=== PATIENT | female | born 1995 | race Two or more races ===

== ENCOUNTER 2024-09-23 07:08 | Inpatient (IN) | payer BC, OTHER ==
[~2024-09-23] VITALS: Ht 160 cm; Wt 95.6 kg
--- NOTE | 2024-09-23 07:23 | ED.PDOC ---
GI ASSESSMENT HPI Comments 29Y F presents to ED for chief complaint epigastric abd pain x5hrs with n/v x2hrs. Pt states abd pain radiates to rt flank area. Pt is unsure when LMP was and is currently on NuvaRing for control. Pt states her mother has h/o cholecystectomy. Pt denies alcohol, tobacco, and illicit drug use. 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 Family History Family History (Other): Gallstones Social History Smoker: Non-Smoker Alcohol: Denies ETOH Use Drugs: Denies Drug Use Lives In: Home Constitutional: denies: chills, diaphoresis, fatigue, fever, malaise, sweats, weakness, others EENTM: denies: blurred vision, double vision, ear bleeding, ear discharge, ear drainage, ear pain, ear ringing, eye pain, eye redness, hearing loss, mouth pain, mouth swelling, nasal discharge, nose bleeding, nose congestion, nose pain, photophobia, tearing, throat pain, throat swelling, voice changes, others Respiratory: denies: cough, hemoptysis, orthopnea, SOB at rest, shortness of breath, SOB with excertion, stridor, wheezing, others Cardiovascular: denies: chest pain, dizzy spells, diaphoresis, Dyspnea on exertion, edema, irregular heart beat, left arm pain, lightheadedness, palpitations, PND, syncope, others Gastrointestinal: reports: abdominal pain, nausea, vomiting; denies: abdomen distended, blood streaked bowels, constipated, diarrhea, dysphagia, difficulty swallowing, hematemesis, melena, poor appetite, poor fluid intake, rectal bleeding, rectal pain, others Genitourinary: reports: flank pain; denies: abnormal vagina bleeding, burning, dyspareunia, dysuria, frequency, hematuria, incontinence, pain, , vagina discharge, urgency, others Neurological: denies: dizziness, fainting, headache, left sided numbness, left sided weakness, numbness, paresthesia, pre-existing deficit, right sided numbness, right sided weakness, seizure, speech problems, tingling, tremors, weakness, others Musculoskeletal: denies: back pain, gout, joint pain, joint swelling, muscle pain, muscle stiffness, neck pain, others Integumetry: denies: bruises, change in color, change in hair/nails, dryness, laceration, lesions, lumps, rash, wounds, others Allergic/Immunocompromised: denies: Difficulty Healing, Frequent Infections, Hives, Itching, others Hematologic/Lymphatic: denies: anemia, blood clots, easy bleeding, easy bruising, swollen glands, others Endocrine: denies: excessive hunger, excessive sweating, excessive thirst, excessive urination, flushing, intolerance to cold, intolerance to heat, unexplained weight gain, unexplained weight loss, others Psychiatric: denies: anxiety, bipolar disorder, depression, hopeless, panic disorder, schizophrenia, sleepless, suicidal, others All Other Systems: Reviewed and Negative Physical Exam General Appearance: No Apparent Distress, Normal HEENT: Normal ENT Inspection, Pharynx Normal, TMs Normal Neck: Full Range of Motion, Non-Tender, Normal, Normal Inspection Respiratory: Chest Non-Tender, Lungs Clear, No Accessory Muscle Use, No Respiratory Distress, Normal Breath Sounds Cardiovascular: No Edema, No JVD, No Murmur, No Gallop, Normal Peripheral Pulses, Regular Rate/Rhythm Breast Exam: Deferred Gastrointestinal: Epigastric, No Pulsatile Mass, Normal Bowel Sounds, RUQ, Tenderness Genitalia: Deferred Pelvic: Deferred Rectal: Deferred Extremities: No calf tenderness, Normal capillary refill, Normal inspection, Normal range of motion, Non-tender, No pedal edema Musculoskeletal : Apperance: Normal Neurologic: Alert, wood piler II-XII nml as Tested, No Motor Deficits, Normal Affect, Normal Mood, No Sensory Deficits Cerebellar Function: Normal Reflexes: Normal Skin: Dry, Normal Color, Warm Lymphatic: No Adenopathy Was a procedure done? Was a procedure done?: No GI differential Dx Differential Diagnosis: Complete , Incomplete , Inevitable , Missed , Threatened , Abruptio placentae, Bowel Obstruction, Cholangitis, Cholecystitis, Constipation, Diverticular disease, Ectopic , Gastritis/PUD, Gastroenteritis, Hernia, Hepatitis, Inflammatory BD, Ischemic Bowel, Pancreatitis, UTI, Urolithiasis, Dehydration, Diabetes/ DKA, Electrolyte Imbalance, Food Poisoning, , Bacterial, Para sitic, Viral, Impaction, Malnutrition X-Ray, Labs, Meds, VS Vital Signs Date Time Temp Pulse Resp B/P (MAP) Pulse Ox O2 Delivery O2 Flow Rate FiO2 09/23/24 10:07 98.0 68 12 110/68 (82) 98 98.0 09/23/24 08:47 60 15 105/51 09/23/24 08:17 65 19 100/60 09/23/24 07:48 100 Room Air* 0 21 09/23/24 07:46 98.1 60 19 100/60 (73) 100 98.1 09/23/24 07:11 97.5 80 16 117/65 (82) 99 Lab Test 09/23/24 07:36 Range/Units White Blood Count 9.3 4.4-10.8 10^3/uL Red Blood Count 5.06 4.0-5.20 10^6/uL Hemoglobin 15.0 12.2-16.2 g/dL Hematocrit 44.7 36.0-46.0 % Mean Corpuscular Volume 88.2 80.0-100.0 fL Mean Corpuscular Hemoglobin 29.7 28.0-32.0 pg Mean Corpuscular Hemoglobin Concent 33.7 32.0-36.0 g/dL Red Cell Distribution Width 13.0 11.8-14.3 % Platelet Count 253 140-450 10^3/uL Mean Platelet Volume 8.4 6.9-10.8 fL Neutrophils (%) (Auto) 83.4 H 37.0-80.0 % Lymphocytes (%) (Auto) 11.9 10.0-50.0 % Monocytes (%) (Auto) 4.2 0.0-12.0 % Eosinophils (%) (Auto) 0.3 0.0-7.0 % Basophils (%) (Auto) 0.2 0.0-2.0 % Neutrophils # (Auto) 7.7 1.6-8.6 10 ^3/uL Lymphocytes # (Auto) 1.1 0.4-5.4 10 ^3/uL Monocytes # (Auto) 0.4 0-1.3 10 ^3/uL Eosinophils # (Auto) 0 0-0.8 10 ^3/uL Basophils # (Auto) 0 0-0.2 10 ^3/uL Nucleated Red Blood Cells 0.1 % Sodium Level 139 136-145 mmol/L Potassium Level 3.3 L 3.5-5.1 mmol/L Chloride Level 108 H 98-107 mmol/L Carbon Dioxide Level 19 L 20-31 mmol/L Anion Gap 12 5-15 Blood Urea Nitrogen 9 9-23 mg/dL Creatinine 0.66 0.550-1.02 mg/dL Glomerular Filtration Rate Calc 121 >90 mL/min BUN/Creatinine Ratio 13.6 10.0-20.0 Serum Glucose 134 H 74-106 mg/dL Calcium Level 9.6 8.7-10.4 mg/dL Total Bilirubin 0.4 0.2-1.0 mg/dL Aspartate Amino Transferase (AST) 14 13-40 U/L Alanine Aminotransferase (ALT) 11 7-40 U/L Alkaline Phosphatase 74 46-116 U/L Total Protein 7.7 5.7-8.2 g/dL Albumin 4.3 3.2-4.8 g/dL Lipase Pending Beta HCG, Quantitative < 1.5 L 1.5-4.2 mIU/mL Current Medications Medications (Trade) Dose Ordered Sig/Raymundo Route Start Time Stop Time Status Last Admin Acetaminophen/ Hydrocodone Bitart ([place] 5/325MG Tab) 1 tab ONCE ONCE PO 09/23/24 07:30 09/23/24 07:31 DC 09/23/24 07:54 Ondansetron HCl (Zofran) 4 mg ONCE ONCE IM 09/23/24 07:30 09/23/24 07:31 DC 09/23/24 07:53 Sodium Chloride 1,000 ml @ 1,000 mls/hr Q1H ONCE IV 09/23/24 08:15 09/23/24 09:14 DC 09/23/24 08:18 Morphine Sulfate 2 mg ONCE ONCE IV 09/23/24 08:15 09/23/24 08:16 DC 09/23/24 08:17 Time of 1ST Reevaluation: 07:45 Reevaluation 1ST: Unchanged Time of 2ND Reevaluation: 10:17 Reevaluation 2ND: Unchanged Patient Education/Counseling: Diagnosis, Treatment, Prognosis, Need For Follow Up Family Education/Counseling: Diagnosis, Treatment, Prognosis, Need For Follow Up, No Family Present Additional Information although pt does not have cholecystitis, or biliary obstruction, her pain remains uncontrolled. she also informs me that she has no PCP and cannot follow up . i will order another dose of pain medication, with fentanyl. if she remains in pain, she will be admitted for intractable biliary colic Departure 1 Departure Time of Disposition: 10:19 Impression: Primary Impression: Cholelithiasis Qualified Codes: K80.20 - Calculus of gallbladder without cholecystitis without obstruction Additional Impression: Intractable abdominal pain Disposition: ADMITTED INPATIENT Admit to: Med Surg Condition: Stable Discharged With: Self, Relative Critical Care Note Critical Care Time?: No Stability Stability form required: No I personally scribed for SHELIA GALLEGOS MD ([email or web address]) on 09/23/24 at 07:23. Electronically submitted by Mallory Henry ([email or web address]). SHELIA GALLEGOS MD Sep 23, 2024 07:23
[2024-09-23 07:48] VITALS: O2SAT 100
[2024-09-23] MEDS: ONDANSETRON HCL 4 MG/2 ML VIAL IM ONE (07:53)
[2024-09-23] MEDS: HYDROcodone-ACET 5/325MG TAB PO ONE (07:54)
[2024-09-23 07:58] LABS: Basophils # (auto) 0 10 ^3/uL (0-0.2); Basophils % (auto) 0.2 % (0.0-2.0); Eosinophils # (auto) 0 10 ^3/uL (0-0.8); Eosinophils % (auto) 0.3 % (0.0-7.0); Hematocrit 44.7 % (36.0-46.0); Lymphocytes # (auto) 1.1 10 ^3/uL (0.4-5.4); Lymphocytes % (auto) 11.9 % (10.0-50.0); Mean Corpuscular Hemoglobin 29.7 pg (28.0-32.0); Mean Corpuscular Hgb Conc. 33.7 g/dL (32.0-36.0); Mean Corpuscular Volume 88.2 fL (80.0-100.0); Monocytes # (auto) 0.4 10 ^3/uL (0-1.3); Monocytes % (auto) 4.2 % (0.0-12.0); Neutrophils # (auto) 7.7 10 ^3/uL (1.6-8.6); Neutrophils % (auto) 83.4 % (37.0-80.0); Nucleated Red Blood Cells % 0.1 %; Platelet Count (auto) 253 10^3/uL (140-450); Red Blood Cells 5.06 10^6/uL (4.0-5.20); White Blood Cell 9.3 10^3/uL (4.4-10.8)
[2024-09-23] MEDS: MORPHINE SULFATE INJ 2 MG/ml SYRG IV ONE (08:17)
[2024-09-23] MEDS: ONDANSETRON HCL 4 MG/2 ML VIAL IV ONE (08:18)
[2024-09-23] MEDS: SODIUM CHLORIDE 0.9% 1,000 ML IV ONE (08:18)
[2024-09-23 08:25] LABS: Alanine Aminotransferase 11 U/L (7-40); Albumin 4.3 g/dL (3.2-4.8); Alkaline Phosphatase 74 U/L (46-116); Anion Gap 12 (5-15); Aspartate Aminotransferase 14 U/L (13-40); BUN/Creatinine Ratio 13.6 (10.0-20.0); Blood Urea Nitrogen 9 mg/dL (9-23); Calcium 9.6 mg/dL (8.7-10.4); Carbon Dioxide 19 mmol/L (20-31); Chloride 108 mmol/L (98-107); Glucose 134 mg/dL (74-106); Potassium 3.3 mmol/L (3.5-5.1); Sodium 139 mmol/L (136-145)
[2024-09-23 08:26] LABS: Bilirubin, Total 0.4 mg/dL (0.2-1.0); Total Protein 7.7 g/dL (5.7-8.2)
--- NOTE | 2024-09-23 09:47 | DVH ---
INDICATION: Right upper quadrant pain. TECHNIQUE: Multiple real-time sonographic images of the abdomen were obtained. COMPARISON: None FINDINGS: The liver is increased in echogenicity. The liver measures 14.6 cm. No intrahepatic biliar y ductal dilatation is noted. The gallbladder wall measures 0.2 cm and is unremarkable. Multiple gallstones. The common duct is not visualized. No pericholecystic fluid is noted. Negative sonographic stokes's sign. The right kidney measures 9.7 cm. No hydronephrosis. The pancreas is not well visualized due to obscuration from bowel gas. The visualized portions of the IVC and aorta are grossly unremarkable. IMPRESSION: 1. Gallstones. No evidence of acute cholecystitis. 2. Hepatic steatosis.
[2024-09-23 10:22] LABS: Lipase 27 U/L (12-53)
[2024-09-23 10:43] LABS: Urine Bacteria None Seen /hpf (None Seen)
[2024-09-23] MEDS: fentaNYL CITRATE 100 MCG/2 ML VL IV ONE (10:49)
[2024-09-23 10:55] LABS: Urine Blood TRACE /uL (Negative); Urine Clarity Clear (Clear); Urine Color Light-Yellow (Yellow); Urine Mucus FEW (None Seen); Urine Protein, UAD Negative (Negative); Urine Specific Gravity 1.026 (1.001-1.035); Urine Urobilinogen Normal (Negative); Urine WBC 3 /hpf (0 - 5); Urine pH 6.5 (5.0-9.0)
[2024-09-23] MEDS: SODIUM CHLORIDE 0.9% 1,000 ML IV SCH (13:30)
--- NOTE | 2024-09-23 13:34 | DVHHP2 ---
History of Present Illness Reason for Visit: Abdominal pain History of Present Illness This 29-year-old female with no significant past medical history presents in the ED with a chief complaint of abdominal pain. Patient reports abdominal pain on right upper quadrant and epigastric area associated with nausea and vomiting started this morning. She denies fever, chills, hematemesis, constipation, diarrhea, or melena. Past Medical History Denies Past Surgical History Denies Family History Mom with a history of cholecystectomy Past Social History The patient lives at home, denies smoking, alcohol or illicit drugs abuse. Review of Systems Constitutional: Yes: Malaise; No: Fever, Chills, Sweats, Weakness, Other Eyes: No: Pain, Vision change, Conjunctivae inflammation, Eyelid inflammation, Other, Redness ENT: No: Ear pain, Ear discharge, Nose pain, Nose discharge, Nose congestion, Mouth pain, Mouth swelling, Throat pain, Throat swelling, Other Respiratory: No: Cough, Dry, Shortness of breath, SOB with excertion, Wheezing, Hemoptysis, Pleuritic Pain, Sputum, Wheezing, Other Cardiovascular: No: Chest Pain, Palpitations, Orthopnea, Paroxysmal Noc. Dyspnea, Edema, Lt Headedness, Other Gastrointestinal: Nausea, Vomiting, Abdominal Pain; No: Diarrhea, Constipation, Melena, Hematochezia, Other Genitourinary: No Dysuria, No Frequency, No Incontinence, No Hematuria, No Retention, No Other Musculoskeletal: No: other, neck pain, shoulder pain, arm pain, back pain, hand pain, leg pain, foot pain Skin: No: Rash, Lesions, Jaundice, Bruising, Other Neurological: No: Weakness, Numbness, Incoordination, Change in speech, Confusion, Seizures, Other Allergies: Coded Allergies: NO KNOWN ALLERGIES (Unverified , 09/23/24) Exam Vital Signs Vital Signs Date Time Temp Pulse Resp B/P (MAP) Pulse Ox O2 Delivery O2 Flow Rate FiO2 09/23/24 11:56 107/63 09/23/24 10:07 98.0 68 12 98 98.0 09/23/24 07:48 Room Air* 0 21 General Appearance: Alert, Oriented X3, Cooperative, mild distress HEENT: Atraumatic, PERRLA, EOMI Respiratory: Clear to auscultation, Normal air movement Cardiovascular: Regular rate, Normal S1 Abdominal: Normal bowel sounds, Soft, No tenderness Extremities: No clubbing, No cyanosis, No edema, Normal pulses Skin: No rashes, No breakdown, No significant lesion Neuro: Normal gait, Normal speech, Strength at 5/5 X4 ext, Normal tone Psych/Mental Status: Mental status NL Labs/Xrays Labs Test 09/23/24 09:00 09/23/24 07:36 Range/Units Urine Color Light-yellow Yellow Urine Clarity Clear Clear Urine pH 6.5 5.0-9.0 Urine Specific [place] 1.026 1.001-1.035 Urine Protein Negative Negative Urine Ketones 3+ H Negative Urine Blood Trace H Negative /uL Urine Nitrite Negative Negative Urine Bilirubin Negative Negative Urine Urobilinogen Normal Negative mg/dL Urine Leukocyte Esterase 1+ Negative /uL Urine RBC 1 0 - 4 /hpf Urine WBC 3 0 - 5 /hpf Urine Squamous Epithelial Cells Few <5 /hpf Urine Bacteria None seen None Seen /hpf Urine Mucus Few None Seen Urine Glucose Normal Normal mg/dL White Blood Count 9.3 4.4-10.8 10^3/uL Red Blood Count 5.06 4.0-5.20 10^6/uL Hemoglobin 15.0 12.2-16.2 g/dL Hematocrit 44.7 36.0-46.0 % Mean Corpuscular Volume 88.2 80.0-100.0 fL Mean Corpuscular Hemoglobin 29.7 28.0-32.0 pg Mean Corpuscular Hemoglobin Concent 33.7 32.0-36.0 g/dL Red Cell Distribution Width 13.0 11.8-14.3 % Platelet Count 253 140-450 10^3/uL Mean Platelet Volume 8.4 6.9-10.8 fL Neutrophils (%) (Auto) 83.4 H 37.0-80.0 % Lymphocytes (%) (Auto) 11.9 10.0-50.0 % Monocytes (%) (Auto) 4.2 0.0-12.0 % Eosinophils (%) (Auto) 0.3 0.0-7.0 % Basophils (%) (Auto) 0.2 0.0-2.0 % Neutrophils # (Auto) 7.7 1.6-8.6 10 ^3/uL Lymphocytes # (Auto) 1.1 0.4-5.4 10 ^3/uL Monocytes # (Auto) 0.4 0-1.3 10 ^3/uL Eosinophils # (Auto) 0 0-0.8 10 ^3/uL Basophils # (Auto) 0 0-0.2 10 ^3/uL Nucleated Red Blood Cells 0.1 % Sodium Level 139 136-145 mmol/L Potassium Level 3.3 L 3.5-5.1 mmol/L Chloride Level 108 H 98-107 mmol/L Carbon Dioxide Level 19 L 20-31 mmol/L Anion Gap 12 5-15 Blood Urea Nitrogen 9 9-23 mg/dL Creatinine 0.66 0.550-1.02 mg/dL Glomerular Filtration Rate Calc 121 >90 mL/min BUN/Creatinine Ratio 13.6 10.0-20.0 Serum Glucose 134 H 74-106 mg/dL Calcium Level 9.6 8.7-10.4 mg/dL Total Bilirubin 0.4 0.2-1.0 mg/dL Aspartate Amino Transferase (AST) 14 13-40 U/L Alanine Aminotransferase (ALT) 11 7-40 U/L Alkaline Phosphatase 74 46-116 U/L Total Protein 7.7 5.7-8.2 g/dL Albumin 4.3 3.2-4.8 g/dL Lipase 27 12-53 U/L Beta HCG, Quantitative < 1.5 L 1.5-4.2 mIU/mL PROCEDURE(s): GBUS - GALLBLADDER REASON: ruq pain ORDER NUMBER(s): [id number], ACCESSION NUMBER(s): [id number] INDICATION: Right upper quadrant pain. TECHNIQUE: Multiple real-time sonographic images of the abdomen were obtained. COMPARISON: None FINDINGS: The liver is increased in echogenicity. The liver measures 14.6 cm. No intrahepatic biliary ductal dilatation is noted. The gallbladder wall measures 0.2 cm and is unremarkable. Multiple gallstones. The common duct is not visualized. No pericholecystic fluid is noted. Negative sonographic stokes's sign. The right kidney measures 9.7 cm. No hydronephrosis. The pancreas is not well visualized due to obscuration from bowel gas. The visualized portions of the IVC and aorta are grossly unremarkable. IMPRESSION: 1. Gallstones. No evidence of acute cholecystitis. 2. Hepatic steatosis. Assessment/Plan Assessment/Plan # Acute abdominal pain likely due to gallstones # nausea and vomiting Admit to medical unit Pain control with Toradol Clear liquid diet advance as tolerated IV fluid Anti emetics Consider surgical consult if not controlled with pain in diet # obesity Lifestyle modification with diet, regular exercise and weight loss Medical plan discussed with patient Plan discussed with: Patient Date of Service: Sep 23, 2024 Billing Provider: FLOWER COLÓN Common Visit Codes: [id number] INP/OBS CARE (HIGH) FLOWER COLÓN Sep 23, 2024 13:34
[2024-09-23] MEDS: ONDANSETRON HCL 4 MG/2 ML VIAL IV PRN (16:34)
[2024-09-23] MEDS: KETOROLAC TROMETH 30 MG/ML 1ML VIAL IV PRN (18:24)
[2024-09-23 20:46] VITALS: BP 114/68; PULSE 83; RESP 18; TEMP 98.2; O2SAT 99
[2024-09-23 21:00] VITALS: BP 111/68; PULSE 92; RESP 20; TEMP 98.2; O2SAT 99
[2024-09-24] VITALS (7 sets, daily range): BP systolic 114–126; BP diastolic 67–74; PULSE 65–96; RESP 17–20; TEMP 97.6–98.8; O2SAT 94–100
[2024-09-24 06:26] LABS: Basophils # (auto) 0.1 10 ^3/uL (0-0.2); Basophils % (auto) 0.9 % (0.0-2.0); Eosinophils # (auto) 0.1 10 ^3/uL (0-0.8); Eosinophils % (auto) 1.1 % (0.0-7.0); Hematocrit 38.6 % (36.0-46.0); Hemoglobin 13.2 g/dL (12.2-16.2); Lymphocytes # (auto) 1.8 10 ^3/uL (0.4-5.4); Lymphocytes % (auto) 24.4 % (10.0-50.0); Mean Corpuscular Hemoglobin 30.2 pg (28.0-32.0); Mean Corpuscular Hgb Conc. 34.3 g/dL (32.0-36.0); Monocytes # (auto) 0.5 10 ^3/uL (0-1.3); Monocytes % (auto) 7.1 % (0.0-12.0); Neutrophils # (auto) 4.9 10 ^3/uL (1.6-8.6); Neutrophils % (auto) 66.5 % (37.0-80.0); Platelet Count (auto) 223 10^3/uL (140-450); Red Blood Cells 4.39 10^6/uL (4.0-5.20); Red Cell Distribution Width 13.1 % (11.8-14.3); White Blood Cell 7.3 10^3/uL (4.4-10.8)
[2024-09-24 06:32] LABS: Anion Gap 6 (5-15); Carbon Dioxide 24 mmol/L (20-31); Chloride 111 mmol/L (98-107); Potassium 3.7 mmol/L (3.5-5.1); Sodium 141 mmol/L (136-145)
[2024-09-24 06:34] LABS: Calcium 8.6 mg/dL (8.7-10.4)
[2024-09-24 06:38] LABS: Blood Urea Nitrogen 6 mg/dL (9-23); Glucose 92 mg/dL (74-106)
--- NOTE | 2024-09-24 11:53 | DVHPN2 ---
Progress Note Date Seen: Sep 24, 2024 Medical Necessity Reason Pt with a Central, PICC or Fol: No Subjective Patient reports: No new complaints Review of Systems: HEENT:Normal, CVS:Normal, RESPIRATORY:Normal, GI:Normal, :Normal, MSK:Normal, NEURO:Normal Objective vital signs Vital Sign Date Time Temp Pulse Resp B/P (MAP) Pulse Ox O2 Delivery O2 Flow Rate FiO2 09/24/24 08:00 97.7 74 18 120/72 (88) 99 97.7 09/23/24 20:46 Room Air* 0 21 Total Intake and Output 09/23/24 09/23/24 09/24/24 15:00 23:00 07:00 Intake Total 500 ml 240 ml Output Total 0 ml Balance 500 ml 240 ml medications Current Medications Medications Dose Ordered Sig/Raymundo Route Start Time Stop Time Status Last Admin Dose Admin Sodium Chloride 1,000 ml @ 100 mls/hr Q10H IV 09/23/24 13:30 09/24/24 09:30 100 MLS/HR Ondansetron HCl 4 mg Q4HP PRN IV 09/23/24 13:30 09/23/24 16:34 4 MG Ketorolac Tromethamine 30 mg Q6HPRN PRN IV 09/23/24 13:30 09/28/24 13:29 09/23/24 18:24 30 MG Examination: GENERAL:Normal, HEENT:Normal, NECK:Normal, LUNGS:Normal, CVS:Normal, ABDOMEN:Normal, MSK:Normal, SKIN:Normal, NEURO:Normal, :Normal laboratory and microbiology Laboratory Tests 09/24/24 05:51 Test 09/24/24 05:51 Range/Units Serum Glucose 92 74-106 mg/dL Problem List/Assessment/Plan Problem List/Assessment/Plan #1 abd pain with gallstones: ivf , surg eval #2 obesity Plan discussed with: Patient, Spouse Date of Service: Sep 24, 2024 Billing Provider: ANATOLY ROUSE MD Common Visit Codes: [id number] INP/OBS CARE(HIGH) ANATOLY ROUSE MD Sep 24, 2024 11:53
[2024-09-24] MEDS ORDERED: ACETAMINOPHEN 500 MG TAB PO PRN (12:00)
[2024-09-24] MEDS ORDERED: HYDROcodone-ACET 5/325MG TAB PO PRN (12:00)
[2024-09-24] MEDS ORDERED: MORPHINE SULFATE INJ 2 MG/ml SYRG IV PRN (12:00)
--- NOTE | 2024-09-24 13:04 | DVHINCON2 ---
Date of service: Sep 24, 2024 Family History: Diabetes mellitus G8 FATHER Hypercholesterolemia G8 MOTHER Allergies: Coded Allergies: NO KNOWN ALLERGIES (Unverified , 09/23/24) Current Medications Current Medications Medications (Trade) Dose Ordered Sig/Raymundo Route PRN Reason Start Time Stop Time Status Last Admin Sodium Chloride 1,000 ml @ 100 mls/hr Q10H IV 09/23/24 13:30 09/24/24 09:30 Ondansetron HCl (Zofran) 4 mg Q4HP PRN IV NAUSEA / VOMITING 09/23/24 13:30 09/23/24 16:34 Ketorolac Tromethamine (Toradol Injection) 30 mg Q6HPRN PRN IV SEVERE PAIN (7-10 PAIN SCALE) 09/23/24 13:30 09/28/24 13:29 09/23/24 18:24 Morphine Sulfate 2 mg Q6HPRN PRN IV SEVERE PAIN (7-10 PAIN SCALE) 09/24/24 12:00 Acetaminophen/ Hydrocodone Bitart ([place] 5/325MG Tab) 1 tab Q6HPRN PRN PO MODERATE PAIN (4-6 PAIN SCALE) 09/24/24 12:00 Acetaminophen (Tylenol Tablet) 500 mg Q6HP PRN PO MILD PAIN (1-3 PAIN SCALE) 09/24/24 12:00 Pantoprazole Sodium (Protonix) 40 mg DAILY IV 09/25/24 10:00 Vital Signs Vital Signs Date Time Temp Pulse Resp B/P (MAP) Pulse Ox O2 Delivery O2 Flow Rate FiO2 09/24/24 08:00 97.7 74 18 120/72 (88) 99 97.7 09/23/24 20:46 Room Air* 0 21 Labs/Diagnostic Data Labs Test 09/24/24 05:51 09/23/24 09:00 09/23/24 07:36 Range/Units White Blood Count 7.3 4.4-10.8 10^3/uL Red Blood Count 4.39 4.0-5.20 10^6/uL Hemoglobin 13.2 12.2-16.2 g/dL Hematocrit 38.6 # 36.0-46.0 % Mean Corpuscular Volume 88.0 80.0-100.0 fL Mean Corpuscular Hemoglobin 30.2 28.0-32.0 pg Mean Corpuscular Hemoglobin Concent 34.3 32.0-36.0 g/dL Red Cell Distribution Width 13.1 11.8-14.3 % Platelet Count 223 140-450 10^3/uL Mean Platelet Volume 8.2 6.9-10.8 fL Neutrophils (%) (Auto) 66.5 37.0-80.0 % Lymphocytes (%) (Auto) 24.4 10.0-50.0 % Monocytes (%) (Auto) 7.1 0.0-12.0 % Eosinophils (%) (Auto) 1.1 0.0-7.0 % Basophils (%) (Auto) 0.9 0.0-2.0 % Neutrophils # (Auto) 4.9 1.6-8.6 10 ^3/uL Lymphocytes # (Auto) 1.8 0.4-5.4 10 ^3/uL Monocytes # (Auto) 0.5 0-1.3 10 ^3/uL Eosinophils # (Auto) 0.1 0-0.8 10 ^3/uL Basophils # (Auto) 0.1 0-0.2 10 ^3/uL Nucleated Red Blood Cells 0.0 % Sodium Level 141 136-145 mmol/L Potassium Level 3.7 3.5-5.1 mmol/L Chloride Level 111 H 98-107 mmol/L Carbon Dioxide Level 24 20-31 mmol/L Anion Gap 6 5-15 Blood Urea Nitrogen 6 L 9-23 mg/dL Creatinine 0.60 0.550-1.02 mg/dL Glomerular Filtration Rate Calc 124 >90 mL/min BUN/Creatinine Ratio 10.0 10.0-20.0 Serum Glucose 92 74-106 mg/dL Calcium Level 8.6 L 8.7-10.4 mg/dL Urine Color Light-yellow Yellow Urine Clarity Clear Clear Urine pH 6.5 5.0-9.0 Urine Specific [place] 1.026 1.001-1.035 Urine Protein Negative Negative Urine Ketones 3+ H Negative Urine Blood Trace H Negative /uL Urine Nitrite Negative Negative Urine Bilirubin Negative Negative Urine Urobilinogen Normal Negative mg/dL Urine Leukocyte Esterase 1+ Negative /uL Urine RBC 1 0 - 4 /hpf Urine WBC 3 0 - 5 /hpf Urine Squamous Epithelial Cells Few <5 /hpf Urine Bacteria None seen None Seen /hpf Urine Mucus Few None Seen Urine Glucose Normal Normal mg/dL Total Bilirubin 0.4 0.2-1.0 mg/dL Aspartate Amino Transferase (AST) 14 13-40 U/L Alanine Aminotransferase (ALT) 11 7-40 U/L Alkaline Phosphatase 74 46-116 U/L Total Protein 7.7 5.7-8.2 g/dL Albumin 4.3 3.2-4.8 g/dL Lipase 27 12-53 U/L Beta HCG, Quantitative < 1.5 L 1.5-4.2 mIU/mL Assessment WILL PROCEED WITH CHOLECYSTECTOMY PER dR ROUSE'S REQUEST ON TUESDAY, WILL SEE PATIENT TOMORROW (not in her room today). Plan discussed with: JERI Jimenez MD Sep 24, 2024 13:04
[2024-09-24] MEDS: PANTOPRAZOLE 40 MG/10 ML VIAL INJ IV ONE (13:31)
[2024-09-25] VITALS (7 sets, daily range): BP systolic 94–119; BP diastolic 53–77; PULSE 69–99; RESP 16–18; TEMP 98–98.6; O2SAT 95–99
[2024-09-25 06:29] LABS: Basophils # (auto) 0 10 ^3/uL (0-0.2); Basophils % (auto) 0.4 % (0.0-2.0); Eosinophils # (auto) 0.1 10 ^3/uL (0-0.8); Eosinophils % (auto) 2.3 % (0.0-7.0); Hematocrit 36.7 % (36.0-46.0); Hemoglobin 12.5 g/dL (12.2-16.2); Lymphocytes # (auto) 1.9 10 ^3/uL (0.4-5.4); Lymphocytes % (auto) 33.3 % (10.0-50.0); Mean Corpuscular Hemoglobin 29.7 pg (28.0-32.0); Mean Corpuscular Volume 87.3 fL (80.0-100.0); Monocytes # (auto) 0.5 10 ^3/uL (0-1.3); Monocytes % (auto) 9.3 % (0.0-12.0); Neutrophils # (auto) 3.1 10 ^3/uL (1.6-8.6); Neutrophils % (auto) 54.7 % (37.0-80.0); Nucleated Red Blood Cells % 0.1 %; Platelet Count (auto) 203 10^3/uL (140-450); Red Cell Distribution Width 13.2 % (11.8-14.3); White Blood Cell 5.6 10^3/uL (4.4-10.8)
[2024-09-25 06:39] LABS: INR 1.01 (0.9-1.15); Partial Thromboplastin Time 29.9 SEC (24.5-34.5); Prothrombin Time 10.7 sec (9.3-11.8)
[2024-09-25 06:47] LABS: Albumin 3.3 g/dL (3.2-4.8); Alkaline Phosphatase 49 U/L (46-116); Anion Gap 4 (5-15); Aspartate Aminotransferase 9 U/L (13-40); Calcium 8.2 mg/dL (8.7-10.4); Carbon Dioxide 25 mmol/L (20-31); Chloride 111 mmol/L (98-107); Glucose 88 mg/dL (74-106); Potassium 3.7 mmol/L (3.5-5.1); Sodium 140 mmol/L (136-145)
[2024-09-25 06:48] LABS: Bilirubin, Total 0.6 mg/dL (0.2-1.0); Total Protein 5.5 g/dL (5.7-8.2)
[2024-09-25 06:52] LABS: Alanine Aminotransferase 9 U/L (7-40); BUN/Creatinine Ratio 9.1 (10.0-20.0); Blood Urea Nitrogen < 5 mg/dL (9-23)
[2024-09-25] MEDS: PANTOPRAZOLE 40 MG/10 ML VIAL INJ IV SCH (10:17)
--- NOTE | 2024-09-25 15:20 | DVHPN2 ---
Progress Note Date Seen: Sep 25, 2024 Medical Necessity Reason Pt with a Central, PICC or Fol: No Subjective Patient reports: No new complaints Review of Systems: HEENT:Normal, CVS:Normal, RESPIRATORY:Normal, GI:Normal, :Normal, MSK:Normal, NEURO:Normal Objective vital signs Vital Sign Date Time Temp Pulse Resp B/P (MAP) Pulse Ox O2 Delivery O2 Flow Rate FiO2 09/25/24 12:39 98.0 69 17 119/74 (89) 98 98.0 09/25/24 08:00 Room Air* 0 21 Total Intake and Output 09/24/24 09/24/24 09/25/24 14:59 22:59 06:59 Intake Total 1000 ml 200 ml Output Total 5 ml Balance 995 ml 200 ml medications Current Medications Medications Dose Ordered Sig/Raymundo Route Start Time Stop Time Status Last Admin Dose Admin Sodium Chloride 1,000 ml @ 100 mls/hr Q10H IV 09/23/24 13:30 09/24/24 19:30 100 MLS/HR Ondansetron HCl 4 mg Q4HP PRN IV 09/23/24 13:30 09/23/24 16:34 4 MG Ketorolac Tromethamine 30 mg Q6HPRN PRN IV 09/23/24 13:30 09/28/24 13:29 09/23/24 18:24 30 MG Morphine Sulfate 2 mg Q6HPRN PRN IV 09/24/24 12:00 Acetaminophen/ Hydrocodone Bitart 1 tab Q6HPRN PRN PO 09/24/24 12:00 Acetaminophen 500 mg Q6HP PRN PO 09/24/24 12:00 Pantoprazole Sodium 40 mg DAILY IV 09/25/24 10:00 09/25/24 10:17 40 MG Examination: GENERAL:Normal, HEENT:Normal, NECK:Normal, LUNGS:Normal, CVS:Normal, ABDOMEN:Normal, MSK:Normal, SKIN:Normal, NEURO:Normal, :Normal laboratory and microbiology Laboratory Tests 09/25/24 05:50 Test 09/25/24 05:50 Range/Units Serum Glucose 88 74-106 mg/dL Problem List/Assessment/Plan Problem List/Assessment/Plan #1 abd pain with gallstones ? acute bunny: ivf , surg in am #2 obesity Plan discussed with: Patient Date of Service: Sep 25, 2024 Billing Provider: ANATOLY ROUSE MD Common Visit Codes: [id number] INP/OBS CARE(HIGH) ANATOLY ROUSE MD Sep 25, 2024 15:20
[2024-09-26] VITALS (10 sets, daily range): BP systolic 94–112; BP diastolic 54–70; PULSE 79–113; RESP 16–19; TEMP 98–98.8; O2SAT 96–99
[2024-09-26 06:47] LABS: Basophils # (auto) 0 10 ^3/uL (0-0.2); Basophils % (auto) 0.4 % (0.0-2.0); Eosinophils # (auto) 0.2 10 ^3/uL (0-0.8); Eosinophils % (auto) 3.4 % (0.0-7.0); Hematocrit 37.5 % (36.0-46.0); Hemoglobin 12.7 g/dL (12.2-16.2); Lymphocytes # (auto) 1.9 10 ^3/uL (0.4-5.4); Lymphocytes % (auto) 35.5 % (10.0-50.0); Mean Corpuscular Hemoglobin 29.7 pg (28.0-32.0); Mean Corpuscular Hgb Conc. 33.8 g/dL (32.0-36.0); Mean Corpuscular Volume 87.8 fL (80.0-100.0); Monocytes # (auto) 0.4 10 ^3/uL (0-1.3); Monocytes % (auto) 7.1 % (0.0-12.0); Neutrophils # (auto) 2.8 10 ^3/uL (1.6-8.6); Neutrophils % (auto) 53.6 % (37.0-80.0); Platelet Count (auto) 216 10^3/uL (140-450); Red Blood Cells 4.27 10^6/uL (4.0-5.20); Red Cell Distribution Width 12.8 % (11.8-14.3); White Blood Cell 5.3 10^3/uL (4.4-10.8)
[2024-09-26 06:55] LABS: Alanine Aminotransferase 11 U/L (7-40); Albumin 3.5 g/dL (3.2-4.8); Alkaline Phosphatase 51 U/L (46-116); Anion Gap 4 (5-15); Aspartate Aminotransferase 11 U/L (13-40); Calcium 8.6 mg/dL (8.7-10.4); Carbon Dioxide 27 mmol/L (20-31); Chloride 109 mmol/L (98-107); Glucose 81 mg/dL (74-106); Potassium 3.8 mmol/L (3.5-5.1); Sodium 140 mmol/L (136-145)
[2024-09-26 06:56] LABS: Bilirubin, Total 0.7 mg/dL (0.2-1.0); Total Protein 5.8 g/dL (5.7-8.2)
[2024-09-26 06:57] LABS: BUN/Creatinine Ratio 8.2 (10.0-20.0); Blood Urea Nitrogen < 5 mg/dL (9-23)
[2024-09-26] MEDS ORDERED: ePHEDrine SULFATE 50 MG/ML AMP IV PRN (11:30)
[2024-09-26] MEDS: ONDANSETRON HCL 4 MG/2 ML VIAL IV ONE (11:30)
[2024-09-26] MEDS ORDERED: HYDROmorphone HCL 2 MG/ML VL/or syr IV PRN ×2 (11:30→12:45)
[2024-09-26] MEDS: ceFAZolin 2 GM/D5W100ml 100 ML IV ONE (12:32)
[2024-09-26] MEDS ORDERED: LIDOCAINE 1% INJ PF 5ML AMP ONE (12:32)
[2024-09-26] MEDS ORDERED: MIDAZOLAM HCL 2MG/2ML 2ml VIAL (1mg/ml) ONE (12:32)
--- NOTE | 2024-09-26 12:44 | DVHPN2 ---
Progress Note Date Seen: Sep 26, 2024 Medical Necessity Reason Pt with a Central, PICC or Fol: No Subjective Patient reports: No new complaints Review of Systems: HEENT:Normal, CVS:Normal, RESPIRATORY:Normal, GI:Normal, :Normal, MSK:Normal, NEURO:Normal Objective vital signs Vital Sign Date Time Temp Pulse Resp B/P (MAP) Pulse Ox O2 Delivery O2 Flow Rate FiO2 09/26/24 09:27 98.2 97 17 112/70 (84) 99 98.2 09/25/24 20:00 Room Air* 0 21 Total Intake and Output 09/25/24 09/25/24 09/26/24 15:00 23:00 07:00 Intake Total 1500 ml 550 ml Balance 1500 ml 550 ml medications Current Medications Medications Dose Ordered Sig/Raymundo Route Start Time Stop Time Status Last Admin Dose Admin Sodium Chloride 1,000 ml @ 100 mls/hr Q10H IV 09/23/24 13:30 09/25/24 17:17 100 MLS/HR Ondansetron HCl 4 mg Q4HP PRN IV 09/23/24 13:30 09/23/24 16:34 4 MG Ketorolac Tromethamine 30 mg Q6HPRN PRN IV 09/23/24 13:30 09/28/24 13:29 09/23/24 18:24 30 MG Morphine Sulfate 2 mg Q6HPRN PRN IV 09/24/24 12:00 Acetaminophen/ Hydrocodone Bitart 1 tab Q6HPRN PRN PO 09/24/24 12:00 Acetaminophen 500 mg Q6HP PRN PO 09/24/24 12:00 Pantoprazole Sodium 40 mg DAILY IV 09/25/24 10:00 09/26/24 10:00 40 MG Examination: GENERAL:Normal, HEENT:Normal, NECK:Normal, LUNGS:Normal, CVS:Normal, ABDOMEN:Normal, MSK:Normal, SKIN:Normal, NEURO:Normal, :Normal laboratory and microbiology Laboratory Tests 09/26/24 05:49 Test 09/26/24 05:49 Range/Units Serum Glucose 81 74-106 mg/dL Problem List/Assessment/Plan Problem List/Assessment/Plan #1 abd pain with gallstones ? acute bunny: ivf , surg today #2 obesity Plan discussed with: Other (rn) Date of Service: Sep 26, 2024 Billing Provider: ANATOLY ROUSE MD Common Visit Codes: [id number] INP/OBS CARE(HIGH) ANATOLY ROUSE MD Sep 26, 2024 12:44
[2024-09-26] MEDS: D5W/SOD CHL 0.45%/KCL 20MEQ 1,000 ML IV SCH (12:45)
[2024-09-26] MEDS ORDERED: ONDANSETRON HCL 4 MG/2 ML VIAL IV PRN (12:45)
[2024-09-26] MEDS ORDERED: HYDROmorphone HCL 2 MG/ML VL/or syr ONE (12:54)
[2024-09-26] MEDS ORDERED: DexAMETHasone SOD PHOS 10MG/1ML VIAL INJ ONE (12:54)
[2024-09-26] MEDS: BUPIVACAINE 0.25% INJ 50ML VIAL ONE (13:07)
[2024-09-26] MEDS: LIDOCAINE 1% HCL (LOCAL ANESTH.) INJ 20ML MDV ONE (13:07)
--- NOTE | 2024-09-26 13:32 | DVHOP ---
DATE OF SURGERY: 09/26/2024 PREOPERATIVE DIAGNOSES: Cholelithiasis, cholecystitis. POSTOPERATIVE DIAGNOSES: Morbid obesity, cholelithiasis and cholecystitis. SURGEON: Kamran Suarez MD MICROSTRATEGY BI DEVELOPER: Mando Hernández. ANESTHESIA: General endotracheal. ANESTHESIOLOGIST: Dr. Solis. PROCEDURE: Laparoscopy, laparoscopic cholecystectomy. DESCRIPTION OF PROCEDURE: Under general endotracheal anesthesia with the patient's skin prepped and draped, a supraumbilical incision was made and Veress needle inserted by the hanging drop technique to establish pneumoperitoneum to 15 mmHg pressure by insufflation with carbon dioxide. With the abdomen fully distended, the needle was removed and replaced with a 10 mm port site through which a 0-degree viewing laparoscope was inserted under direct vision, an additional 5 mm port were established through the subxiphoid skin in the right anterior axillary line. Following which instrumentation was introduced and laparoscopy was performed. It was hampered by the patient's morbid obesity; however, no obvious unexpected pathology was encountered. The gallbladder was affected by acute and chronic cholecystitis. It was distended and inflamed and was placed on tension. The cystic duct and cystic artery were identified, circumferentially dissected, skeletonized and traced into the hepaticocystic triangle so as to minimize the potential for inadvertent injury to the common bile duct. The cystic duct and cystic artery were then divided between metallic clips close to the gallbladder and the gallbladder was resected from its liver bed by electrocautery and traction. The fully mobilized gallbladder was removed from the peritoneal cavity by placement in an extraction bag, which was then retrieved through the supraumbilical 10 mm port sites. The right upper quadrant was thoroughly irrigated, irrigant was aspirated. Hemostasis was meticulously accomplished, found to be complete. At the termination of the procedure, there was no evidence of bleeding from either the liver bed or from the port sites. Instrumentation was withdrawn. Pneumoperitoneum was evacuated. Fascial defect closed using 0 Vicryl. Wounds approximated using Monocryl sutures, Dermabond glue and Steri-Strips. The patient remained stable throughout the procedure and left the operating room following an accurate needle and sponge counts. The patient's was thoroughly informed in the waiting room. Kamran Suarez MD PF TID: [id number] RECEIPT: [id number]
[2024-09-26] MEDS ORDERED: ONDANSETRON HCL 4 MG/2 ML VIAL ONE (13:37)
[2024-09-26] MEDS: ACETAMINOPHEN/CODEINE#3 (300/30mg) TAB PO PRN (13:37)
[2024-09-26] MEDS ORDERED: PROPOFOL 10 MG/ML 20 ML IV ONE (13:49)
[2024-09-27 01:00] VITALS: BP 100/68; PULSE 77; RESP 17; TEMP 98.6; O2SAT 97
[2024-09-27 05:00] VITALS: BP 108/64; PULSE 89; RESP 18; TEMP 98.5; O2SAT 95
[2024-09-27 07:07] LABS: Basophils # (auto) 0 10 ^3/uL (0-0.2); Basophils % (auto) 0.1 % (0.0-2.0); Eosinophils # (auto) 0 10 ^3/uL (0-0.8); Eosinophils % (auto) 0.2 % (0.0-7.0); Hemoglobin 12.3 g/dL (12.2-16.2); Lymphocytes # (auto) 1.4 10 ^3/uL (0.4-5.4); Mean Corpuscular Hgb Conc. 34.3 g/dL (32.0-36.0); Mean Corpuscular Volume 87.6 fL (80.0-100.0); Monocytes # (auto) 0.5 10 ^3/uL (0-1.3); Monocytes % (auto) 7.7 % (0.0-12.0); Neutrophils # (auto) 4.8 10 ^3/uL (1.6-8.6); Nucleated Red Blood Cells % 0.1 %; Platelet Count (auto) 240 10^3/uL (140-450); Red Blood Cells 4.11 10^6/uL (4.0-5.20); Red Cell Distribution Width 12.7 % (11.8-14.3); White Blood Cell 6.8 10^3/uL (4.4-10.8)
[2024-09-27 07:27] LABS: Alanine Aminotransferase 22 U/L (7-40); Albumin 3.4 g/dL (3.2-4.8); Alkaline Phosphatase 53 U/L (46-116); Anion Gap 7 (5-15); Aspartate Aminotransferase 21 U/L (13-40); Bilirubin, Total 0.5 mg/dL (0.2-1.0); Calcium 8.9 mg/dL (8.7-10.4); Carbon Dioxide 25 mmol/L (20-31); Chloride 109 mmol/L (98-107); Glucose 119 mg/dL (74-106); Sodium 141 mmol/L (136-145)
[2024-09-27 07:31] LABS: BUN/Creatinine Ratio 8.3 (10.0-20.0); Blood Urea Nitrogen < 5 mg/dL (9-23)
[2024-09-27 09:00] VITALS: BP 103/73; PULSE 90; RESP 20; TEMP 98; O2SAT 95
[2024-09-27] MEDS ORDERED: PANTOPRAZOLE 40 MG/10 ML VIAL INJ IV SCH (10:00)
[2024-09-27] MEDS: cefTRIAXone 2GM/50ML D5W 50 ML IV SCH (10:29)
[2024-09-27] MEDS: PANTOPRAZOLE 40 MG/10 ML VIAL INJ IV SCH (10:58)
--- NOTE | 2024-09-27 11:21 | DVHPN2 ---
Eyes: No Pain, No Vision change, No Conjunctivae inflammation, No Eyelid inflammation, No Other, No Redness ENT: No Ear pain, No Ear discharge, No Nose pain, No Nose discharge, No Nose congestion, No Mouth pain, No Mouth swelling, No Throat pain, No Throat swelling, No Other Cardiovascular: No Chest Pain, No Palpitations, No Orthopnea, No Paroxysmal Noc. Dyspnea, No Edema, No Lt Headedness, No Other Respiratory: No Cough, No Dry, No Shortness of breath, No SOB with excertion, No Wheezing, No Hemoptysis, No Pleuritic Pain, No Sputum, No Other Gastrointestinal: Nausea, Vomiting, Abdominal Pain; No Diarrhea, No Constipation, No Melena, No Hematochezia, No Other Genitourinary: No Dysuria, No Frequency, No Incontinence, No Hematuria, No Retention, No Other Musculoskeletal: No other, No neck pain, No shoulder pain, No arm pain, No back pain, No hand pain, No leg pain, No foot pain Skin: No Rash, No Lesions, No Jaundice, No Bruising, No Other Objective Vitals Vital Signs Date Time Temp Pulse Resp B/P (MAP) Pulse Ox O2 Delivery O2 Flow Rate FiO2 09/27/24 09:00 98.0 90 20 103/73 (83) 95 98.0 09/27/24 08:00 Room Air* 0 21 Intake/Output Intake and Output 09/27/24 07:00 Intake Total 1900 ml Balance 1900 ml Intake Oral 900 ml IV Total 1000 ml # Voids 14 Medications Current Medications Medications Dose Ordered Sig/Raymundo Route Start Time Stop Time Status Last Admin Dose Admin Sodium Chloride 1,000 ml @ 100 mls/hr Q10H IV 09/23/24 13:30 09/27/24 11:05 100 MLS/HR Ondansetron HCl 4 mg Q4HP PRN IV 09/23/24 13:30 09/23/24 16:34 4 MG Ketorolac Tromethamine 30 mg Q6HPRN PRN IV 09/23/24 13:30 09/28/24 13:29 09/23/24 18:24 30 MG Morphine Sulfate 2 mg Q6HPRN PRN IV 09/24/24 12:00 Acetaminophen/ Hydrocodone Bitart 1 tab Q6HPRN PRN PO 09/24/24 12:00 Acetaminophen 500 mg Q6HP PRN PO 09/24/24 12:00 Potassium Chloride/Dextrose/ Sod Cl 1,000 ml @ 120 mls/hr Q8H20M IV 09/26/24 12:45 09/26/24 21:05 120 MLS/HR Ceftriaxone Sodium/Dextrose 50 ml @ 50 mls/hr DAILY IV 09/27/24 10:00 09/27/24 10:29 50 MLS/HR Hydromorphone HCl 0.5 mg Q2HPRN PRN IV 09/26/24 12:45 Acetaminophen/ Codeine Phosphate 1 tab Q4HP PRN PO 09/26/24 12:45 09/26/24 13:37 1 TAB Ondansetron HCl 4 mg Q4HPRN PRN IV 09/26/24 12:45 Pantoprazole Sodium 40 mg DAILY IV 09/27/24 10:00 09/27/24 10:58 40 MG Laboratory Results Laboratory Tests 09/27/24 05:50 Chemistry Test 09/27/24 05:50 Albumin 3.4 g/dL (3.2-4.8) Calcium Level 8.9 mg/dL (8.7-10.4) Total Protein 6.0 g/dL (5.7-8.2) LFT Test 09/27/24 05:50 Alanine Aminotransferase (ALT) 22 U/L (7-40) Alkaline Phosphatase 53 U/L (46-116) Aspartate Amino Transferase (AST) 21 U/L (13-40) Total Bilirubin 0.5 mg/dL (0.2-1.0) Urinalysis Test 09/23/24 09:00 Urine Color Light-yellow (Yellow) Urine Clarity Clear (Clear) Urine pH 6.5 (5.0-9.0) Urine Specific [place] 1.026 (1.001-1.035) Urine Protein Negative (Negative) Urine Ketones 3+ (Negative) H Urine Blood Trace /uL (Negative) H Urine Nitrite Negative (Negative) Urine Bilirubin Negative (Negative) Urine Urobilinogen Normal mg/dL (Negative) Urine Leukocyte Esterase 1+ /uL (Negative) Urine RBC 1 /hpf (0 - 4) Urine WBC 3 /hpf (0 - 5) Urine Squamous Epithelial Cells Few /hpf (<5) Urine Bacteria None seen /hpf (None Seen) Urine Mucus Few (None Seen) Urine Glucose Normal mg/dL (Normal) BARBARA VALVERDE MD Sep 27, 2024 11:21
[2024-09-27 13:00] VITALS: BP 117/75; PULSE 89; RESP 18; TEMP 97.7; O2SAT 95
--- NOTE | 2024-09-27 14:49 | DVHPN2 ---
Progress Note Date Seen: Sep 27, 2024 Medical Necessity Reason Pt with a Central, PICC or Fol: No Objective vital signs Vital Sign Date Time Temp Pulse Resp B/P (MAP) Pulse Ox O2 Delivery O2 Flow Rate FiO2 09/27/24 13:00 97.7 89 18 117/75 (89) 95 97.7 09/27/24 08:00 Room Air* 0 21 Total Intake and Output 09/26/24 09/26/24 09/27/24 15:00 23:00 07:00 Intake Total 0 ml 200 ml 1700 ml Balance 0 ml 200 ml 1700 ml medications Current Medications Medications Dose Ordered Sig/Raymundo Route Start Time Stop Time Status Last Admin Dose Admin Sodium Chloride 1,000 ml @ 100 mls/hr Q10H IV 09/23/24 13:30 09/27/24 11:05 100 MLS/HR Ketorolac Tromethamine 30 mg Q6HPRN PRN IV 09/23/24 13:30 09/28/24 13:29 Hold 09/23/24 18:24 30 MG Morphine Sulfate 2 mg Q6HPRN PRN IV 09/24/24 12:00 Acetaminophen/ Hydrocodone Bitart 1 tab Q6HPRN PRN PO 09/24/24 12:00 Acetaminophen 500 mg Q6HP PRN PO 09/24/24 12:00 Ceftriaxone Sodium/Dextrose 50 ml @ 50 mls/hr DAILY IV 09/27/24 10:00 09/27/24 10:29 50 MLS/HR Hydromorphone HCl 0.5 mg Q2HPRN PRN IV 09/26/24 12:45 Acetaminophen/ Codeine Phosphate 1 tab Q4HP PRN PO 09/26/24 12:45 09/26/24 13:37 1 TAB Ondansetron HCl 4 mg Q4HPRN PRN IV 09/26/24 12:45 Pantoprazole Sodium 40 mg DAILY IV 09/27/24 10:00 09/27/24 10:58 40 MG laboratory and microbiology Laboratory Tests 09/27/24 05:50 Test 09/27/24 05:50 Range/Units Serum Glucose 119 H 74-106 mg/dL Problem List/Assessment/Plan Problem List/Assessment/Plan 09/27/24 DOING WELL, WOUNDS CLEAN AND WELL APPROXIMATED, ABDOMEN NON DISTENDED, APPROP[RIATELY TENSDER, LABS OK, SHE ISM CLEARED FOR DISCHARGE, TO RETURN TO SEE ME IN TWO WEEKS, MAY SHOWER AFTER48 HOURS Plan discussed with: Patient, Spouse Dietary Evaluation Review Comments: 1) Advance pt diet when medically feasible 2) Continue current plan of care Expected Outcomes/Goals: 1) F/U in 2-3 days JERI FARNSWORTH MD Sep 27, 2024 14:49
[2024-09-27] MEDS ORDERED: HYDR-4902 PO (16:42)
--- NOTE | 2024-09-27 16:44 | DVHDS2 ---
Discharge Summary Date of Admission Sep 23, 2024 at 13:28 Date of Discharge: Sep 27, 2024 Labs/Diagnostic Data: Laboratory Results Test 09/27/24 05:50 09/25/24 05:50 09/23/24 09:00 09/23/24 07:36 White Blood Count 6.8 10^3/uL (4.4-10.8) Red Blood Count 4.11 10^6/uL (4.0-5.20) Hemoglobin 12.3 g/dL (12.2-16.2) Hematocrit 36.0 % (36.0-46.0) Mean Corpuscular Volume 87.6 fL (80.0-100.0) Mean Corpuscular Hemoglobin 30.0 pg (28.0-32.0) Mean Corpuscular Hemoglobin Concent 34.3 g/dL (32.0-36.0) Red Cell Distribution Width 12.7 % (11.8-14.3) Platelet Count 240 10^3/uL (140-450) Mean Platelet Volume 8.3 fL (6.9-10.8) Neutrophils (%) (Auto) 71.0 % (37.0-80.0) Lymphocytes (%) (Auto) 21.0 % (10.0-50.0) Monocytes (%) (Auto) 7.7 % (0.0-12.0) Eosinophils (%) (Auto) 0.2 % (0.0-7.0) Basophils (%) (Auto) 0.1 % (0.0-2.0) Neutrophils # (Auto) 4.8 10 ^3/uL (1.6-8.6) Lymphocytes # (Auto) 1.4 10 ^3/uL (0.4-5.4) Monocytes # (Auto) 0.5 10 ^3/uL (0-1.3) Eosinophils # (Auto) 0 10 ^3/uL (0-0.8) Basophils # (Auto) 0 10 ^3/uL (0-0.2) Nucleated Red Blood Cells 0.1 % Sodium Level 141 mmol/L (136-145) Potassium Level 4.0 mmol/L (3.5-5.1) Chloride Level 109 mmol/L (98-107) Carbon Dioxide Level 25 mmol/L (20-31) Anion Gap 7 (5-15) Blood Urea Nitrogen < 5 mg/dL (9-23) Creatinine 0.60 mg/dL (0.550-1.02) Glomerular Filtration Rate Calc 124 mL/min (>90) BUN/Creatinine Ratio 8.3 (10.0-20.0) Serum Glucose 119 mg/dL (74-106) Calcium Level 8.9 mg/dL (8.7-10.4) Total Bilirubin 0.5 mg/dL (0.2-1.0) Aspartate Amino Transferase (AST) 21 U/L (13-40) Alanine Aminotransferase (ALT) 22 U/L (7-40) Alkaline Phosphatase 53 U/L (46-116) Total Protein 6.0 g/dL (5.7-8.2) Albumin 3.4 g/dL (3.2-4.8) Prothrombin Time 10.7 sec (9.3-11.8) Prothrombin Time INR 1.01 (0.9-1.15) Activated Partial Thromboplast Time 29.9 SEC (24.5-34.5) Urine Color Light-yellow (Yellow) Urine Clarity Clear (Clear) Urine pH 6.5 (5.0-9.0) Urine Specific [place] 1.026 (1.001-1.035) Urine Protein Negative (Negative) Urine Ketones 3+ (Negative) Urine Blood Trace /uL (Negative) Urine Nitrite Negative (Negative) Urine Bilirubin Negative (Negative) Urine Urobilinogen Normal mg/dL (Negative) Urine Leukocyte Esterase 1+ /uL (Negative) Urine RBC 1 /hpf (0 - 4) Urine WBC 3 /hpf (0 - 5) Urine Squamous Epithelial Cells Few /hpf (<5) Urine Bacteria None seen /hpf (None Seen) Urine Mucus Few (None Seen) Urine Glucose Normal mg/dL (Normal) Lipase 27 U/L (12-53) Beta HCG, Quantitative < 1.5 mIU/mL (1.5-4.2) Other Laboratory Tests 09/27/24 05:50 Final Diagnosis/Problems List cholecystitis Discharge Disposition: Home Discharge Instruct/Medications Diet: Regular Activity: No Restrictions, As Tolerated Follow Up/Referral: pcp 1-[address] Nava per schedule Medications: norco 5/325 every 6 hours as needed for pain Discharge Statement: "Patient was advised to return to the ER or call 911 if any headaches, dizziness, shortness of breath, chest pain, abdominal pain, bleeding, fevers, or worsening of medical condition. Patient was counseled about treatment plan, medications, possible side effects, patientverbalized understanding. All questions were answered to the best of my ability. This discharge took greater then 30 minutes in planning, reviewing documentation, counseling the patient, and discussing with other team members." ASSESSMENT ASSESSMENT Assessment cholecystitis BARBARA VALVERDE MD Sep 27, 2024 16:44
[2024-09-27 16:51] VITALS: BP 144/95; PULSE 103; RESP 20; TEMP 98; O2SAT 95
== END 2024-09-27 18:23 | disposition home or self-care (01) | DRG 419 ==
LOC: ER 07:08 → OVERFLOW 13:28 → WEST WING 20:30
PROVIDERS: ADMIT Registered Nurse; ATTEND Internal Medicine
PROC: 0FT44ZZ Resection of Gallbladder, Percutaneous Endoscopic Approach (ICD-10-PCS; principal; 2024-09-26 11:40)
DX: K80.12 Calculus of gallbladder with acute and chronic cholecystitis without obstruction (principal); E66.01 Morbid (severe) obesity due to excess calories; Z83.3 Family history of diabetes mellitus; Z68.37 Body mass index [BMI] 37.0-37.9, adult; Z79.899 Other long term (current) drug therapy
CPT/HCPCS: 36415; 76705; 80048; 80053; 81001; 83690; 84702; 85025; 85610; 85730; 86850; 86900; 86901; 96372; 96374; G0378; J1100; J1885; J2003; J2250; J2405; J2470; J2704; J3490